=== PATIENT | female | born 1960 | race African-American/Black ===

== ENCOUNTER 2017-05-10 08:39 | Emergency (ER) | payer OTHER ==
[~2017-05-10] VITALS: Ht 152.4 cm; Wt 59.0 kg
[2017-05-10] MEDS ORDERED: MOBIC15 MG PO (08:47)
[2017-05-10] MEDS ORDERED: LISINOPRIL-HCT1 EAC2 PO (08:48)
[2017-05-10] MEDS ORDERED: PROZAC20 MG PO (08:49)
[2017-05-10] MEDS ORDERED: VENTOLIN HFA 1818 GM INH (08:50)
[2017-05-10] MEDS ORDERED: PRAVACHOL20 MG PO (08:50)
[2017-05-10] MEDS ORDERED: SENEXON-S TABL1 EACH PO (08:51)
[2017-05-10] MEDS ORDERED: ZANTAC 150MG T150 MG PO (08:52)
[2017-05-10] MEDS ORDERED: POLYETHYLENE G255 G1 PO (08:52)
[2017-05-10] MEDS ORDERED: NORCO 10-325 T1 EACH PO (08:53)
[2017-05-10 09:06] LABS: ABSOLUTE NEUTROPHILS 7.4 thou/uL (1.4-8.2); BASOPHILS 0.6 % (0.0-2.0); EOSINOPHILS 0.6 % (0.0-3.0); HEMATOCRIT 31.8 % (37.0-47.0); HEMOGLOBIN 10.4 gm/dL (12.0-15.0); LYMPHOCYTES 13.4 % (24.0-44.0); MCH 31.8 pg (26.0-34.0); MCHC 32.7 g/dL (28.0-37.0); PLATELET COUNT 398 thou/uL (150-400); POLYS 75.4 % (36.0-66.0); RBC 3.28 mil/uL (4.20-5.00); RDW 13.7 % (10.5-14.5); WBC 9.8 thou/uL (4.0-11.0)
[2017-05-10 09:14] LABS: CALCIUM 9.2 mg/dL (8.5-10.1); CREATININE 0.8 mg/dL (0.6-1.0)
[2017-05-10 09:20] LABS: ALBUMIN 2.8 g/dL (3.4-5.0); TOTAL BILIRUBIN 0.7 mg/dL (<0.1-1.0); TOTAL PROTEIN 7.7 g/dL (6.4-8.2)
== END 2017-05-10 09:58 | disposition home or self-care (01) ==
LOC: ER 08:39
PROVIDERS: Emergency Medicine
DX: M79.662 Pain in left lower leg (principal); M79.661 Pain in right lower leg; Z88.6 Allergy status to analgesic agent